=== PATIENT | male | born 1950 | race Caucasian/White ===

== ENCOUNTER 2018-10-07 05:56 | Inpatient (IN) | payer OTHER, MEDICARE ==
--- NOTE | 2018-10-06 11:50 | GHP ---
[f rep st] PREOP HISTORY AND PHYSICAL DATE OF ADMISSION: 10/07/2018 HISTORY: John is a 68-year-old male who presents with left shoulder pain, loss of motion and stif fness, loss of function. He has severe left shoulder glenohumeral [id number]-[id number] osteoarthritis. He h as tried activity modification. He has maintained his arm strength, and has continued to try to exer cise, he has used appropriate medications. He continues to have significant shoulder discomfort and loss of function, including activities of daily living. He has had an MRI that shows rotator cuff te ndinosis, but no tear of the rotator cuff, he has severe mtuv-vy-wrir glenohumeral osteoarthritis wit h inferior bone spurring, aqhm-xe-ojmp contact, subacromial sclerosis, and cyst formation. A left to elie shoulder arthroplasty is planned. PAST MEDICAL HISTORY: No current medical problems. PAST SURGICAL HISTORY: Include a procedure for testicle at age 12. He has had a vasectomy. ALLERGIES: He has no known drug allergies. MEDICATIONS: He uses Flonase, an antacid and supplement. SOCIAL HISTORY: He is a nonsmoker. REVIEW OF SYSTEMS: Negative for cardiopulmonary disease. PHYSICAL EXAM: GENERAL: John is a well-developed, well-nourished male in no apparent distress. HEAD AND NECK: Normocephalic, atraumatic. CHEST: Clear. CARDIOVASCULAR: Regular rate and rhythm. ABDOMEN: Soft. NEUROLOGIC: He is alert and oriented x3. EXTREMITIES: Examination of the left s zurdo shows 120 degrees of forward flexion. He has limitations of internal and external rotation. Mild impingement findings, though he has maintained good rotator cuff strength on initiation of abdu ction, external rotation, as well as supraspinatus testing. He is not tender over the AC joint. No biceps deformity. IMPRESSION: Left shoulder glenohumeral severe osteoarthritis. PLAN: Left total shoulder arthroplasty. Benefits and risks of surgery have been reviewed with Julio Cesar prakash. He understands that the risks include infection, damage to blood vessel or nerve, failure or loo sening of components and need for revision, shoulder dislocation or possible limitations of motion. He has signed his consent form and he wishes to proceed. /[id number]/MODL
[2018-10-07] MEDS ORDERED: ROPIVACAINE 0.2% 80 MG, EPINEPHrine 0.2 MG, KETOROLAC TROMETHAMINE 30 MG in SYRINGE 0 ML IU ONE (06:00)
[2018-10-07] MEDS ORDERED: TRANEXAMIC ACID 1,000 MG in NS 100 ML IV ONE (06:00)
[2018-10-07] MEDS ORDERED: PREGABALIN 150 MG CAP PO ONE (06:14)
[2018-10-07] MEDS ORDERED: LIDOCAINE 1% 2 ML INJ ID PRN (06:14)
[2018-10-07] MEDS ORDERED: LR 1,000 ML IV SCH ×2 (06:14→11:00)
[2018-10-07] MEDS ORDERED: ceFAZolin 2 GM/DEXTROSE 100 ML IV ONE (06:14)
[2018-10-07] MEDS ORDERED: ACETAMINOPHEN 500 MG TAB PO ONE (06:14)
[2018-10-07] MEDS ORDERED: LR 1,000 ML IV ONE (06:14)
[2018-10-07] MEDS ORDERED: BUPIVACAINE/EPI 0.5% 30 ML SDV ONE (06:17)
[2018-10-07] MEDS ORDERED: POLYMYXIN B SULFATE 500,000 UNIT/10 ML SYR IRR ONE (06:18)
[2018-10-07] MEDS ORDERED: BACITRACIN 50,000 UNITS/10 ML SYR IRR ONE (06:18)
[2018-10-07] MEDS ORDERED: MIDAZOLAM 2 MG/2 ML VIAL IVP ONE (07:03)
--- NOTE | 2018-10-07 07:03 | PDANEPAE ---
ANE History of Present Illness 68 yo for tsa ANE Past Medical History - Cardiovascular History Hx Hypertension: No Hx Arrhythmias: No Hx Chest Pain: No Hx Coronary Artery / Peripheral Vascular Disease: No Hx CHF / Valvular Disease: No Hx Palpitations: No - Pulmonary History Hx COPD: No Hx Asthma/Reactive Airway Disease: No Hx Recent Upper Respiratory Infection: No Hx Oxygen in Use at Home: No Hx Sleep Apnea: No Sleep Apnea Screening Result - Last Documented: Negative - Neurologic History Hx Cerebrovascular Accident: No Hx Seizures: No Hx Dementia: No - Endocrine History Hx Diabetes: No - Renal History Hx Renal Disorders: No - Liver History Hx Hepatic Disorders: No - Neurological & Psychiatric Hx Hx Neurological and Psychiatric Disorders: No - Cancer History Hx Cancer: No - Congenital Disorder History Hx Congenital Disorders: No - GI History Hx Gastrointestinal Disorders: Yes Gastrointestinal History Comment: REFLUX - Other Health History Other Health History: LT SHLDR LIMITED ROM. DEVIATED SEPTUM - Chronic Pain History Chronic Pain: Yes (LT SHLDR) - Surgical History Prior Surgeries: RT UNDESCENDED TESTICLE. VASECTOMY REVERSAL ANE Review of Systems Review of Systems: - Exercise capacity METS (RN): 5 METS ANE Patient History - Allergies Allergies/Adverse Reactions: No Known Allergies Allergy (Unverified 09/20/18 20:46) - Home Medications Home Medications: Fluticasone Nasal [Flonase Nasal Vinson (RX)] 1 sprays NASAL DAILY PRN MDD ALLERGY 09/20/18 [Last Taken 10/07/18 04:15] Herbals/Supplements -Info Only 1 ea PO DAILY 09/20/18 [Last Taken 1 Week Ago ~] Ibuprofen [Motrin (*)] 200 mg PO DAILY PRN 09/20/18 [Last Taken 1 Week Ago ~] Ranitidine HCl 150 mg PO BID 09/20/18 [Last Taken 10/07/18 04:15] SYSTANE 0.3-0.4% EYE DROPS DAILY 09/27/18 [Last Taken 10/07/18 04:15] - NPO status NPO Since - Liquids (Date): 10/07/18 NPO Since - Liquids (Time): 04:15 NPO Since - Solids (Date): 10/06/18 NPO Since - Solids (Time): 18:00 - Smoking Hx Smoking Status: Never smoked ANE Labs/Vital Signs - Vital Signs Blood Pressure: 112/77 Heart Rate: 62 Respiratory Rate: 14 O2 Sat (%): 96 Height: 5 ft 10 in Weight: 73.482 kg ANE Physical Exam - Airway Neck exam: FROM Mallampati Score: Class 2 Mouth exam: normal dental/mouth exam - Pulmonary Pulmonary: no respiratory distress - Cardiovascular Cardiovascular: regular rate and rhythym - ASA Status ASA Status: II ANE Anesthesia Plan Anesthesia Plan: general endotracheal anesthesia Regional Anesthesia: single shot NB
[2018-10-07] MEDS ORDERED: fentaNYL 250 MCG/5 ML INJ ONE (07:14)
[2018-10-07] MEDS ORDERED: PROPOFOL/EMULSION 500 MG/50 ML BOTTLE IV ONE ×2 (07:14→09:12)
[2018-10-07] MEDS ORDERED: ROCURONIUM 100 MG/10 ML VIAL ONE (07:16)
--- NOTE | 2018-10-07 07:18 | PDHPUP ---
History & Physical Update H&P update statement: This history and physical update is based on an assessment of the patient which was completed after admission or registration (within 24 hours), but prior to the surgery/procedure. H&P update: no change in patient's condition since H&P completed
[2018-10-07] MEDS ORDERED: DEXAMETHASONE 4 MG/ML VIAL ONE (09:12)
[2018-10-07] MEDS ORDERED: ONDANSETRON 4 MG/2 ML VIAL ONE (09:13)
[2018-10-07] MEDS ORDERED: KETOROLAC 30 MG/1 ML SDV ONE (09:13)
[2018-10-07] MEDS ORDERED: SUGAMMADEX SODIUM 200 MG/2 ML VIAL IVP ONE (10:08)
[2018-10-07] MEDS ORDERED: fentaNYL 100 MCG/2 ML INJ IVP PRN (10:26)
[2018-10-07] MEDS ORDERED: HYDROmorphONE/DILAUDID 2 MG/ML INJ IVP PRN (10:26)
[2018-10-07] MEDS ORDERED: NALOXONE HCL 0.4 MG/ML INJ IVP PRN (10:26)
[2018-10-07] MEDS ORDERED: ONDANSETRON 4 MG/2 ML VIAL IVP PRN ×2 (10:26→10:55)
[2018-10-07] MEDS ORDERED: HYDROCODONE/APAP 5/325 TAB PO PRN (10:55)
[2018-10-07] MEDS ORDERED: ACETAMINOPHEN 325 MG TAB PO PRN (10:55)
[2018-10-07] MEDS ORDERED: TEMAZEPAM 15 MG CAP PO PRN (10:55)
[2018-10-07] MEDS ORDERED: PROPYLENE GLYCOL OP PRN (11:07)
[2018-10-07] MEDS ORDERED: PEG OP PRN (11:07)
--- NOTE | 2018-10-07 11:12 | PDMN ---
Medical Necessity Medical necessity: [facility] [place] S364 Shoulder Arthroplasty, 1 day, 68 yo s/p L shoulder arthroplasty, IP only
--- NOTE | 2018-10-07 11:47 | GOP ---
[f rep st] OPERATIVE REPORT DATE OF OPERATION: 10/07/2018 SURGEON: Keyur Davis MD SHOE CUTTER: Wes Boyer, [facility], LSA. ANESTHESIOLOGIST: Jose Gutierrez MD. PREOPERATIVE DIAGNOSIS: Left shoulder glenohumeral osteoarthritis. POSTOPERATIVE DIAGNOSIS: Left shoulder glenohumeral osteoarthritis. PROCEDURE PERFORMED: Left total shoulder arthroplasty. FINDINGS: SPECIMENS: Include excised bone. ESTIMATED BLOOD LOSS: About 50 cc. INDICATIONS: The patient is a 68-year-old male who has had progressive pain, limited motion and shou lder dysfunction due to severe left glenohumeral osteoarthritis that is wobp-yf-grgo with lipping ost eophytes. He has some rotator cuff tendinosis by MRI, but no tear. He has tried appropriate conserv ative measures. A left total shoulder arthroplasty is planned. DESCRIPTION OF PROCEDURE: The patient was taken to the operating room, and Dr. Gutierrez provided a s calene block under ultrasound guidance. He was then placed under general anesthetic with endotrachea l intubation. Received preoperative antibiotics and tranexamic acid. He was placed in a semi-beach chair position with a Rodgers head track coach with his body moved to the left side of the table so I cou ld extend his shoulder. The left shoulder was carefully prepped and draped with chlorhexidine in the usual fashion. I made a deltopectoral approach, my incision extended from the coracoid process to a point in the upper mid anterior arm. Dissection was carried down through subcutaneous tissue. The cephalic vein was identified and moved laterally with the deltoid muscle. Blunt dissection was francie ed down onto the joint capsule and the humeral head. A deltoid retractor was placed. I identified t he distal portion of the biceps tendon just above the pectoralis tendon, opened the sheath and I teno desed the biceps tendon with 2 ktblhq-[id number] sutures of #2 FiberWire and released the tendon above it. Later, the tendon was removed completely from the joint. I opened the capsule vertically full-t hickness through subscapularis and capsule and carried the incision through the interval. This was a very thickened capsule and I debrided the interior surface which was thickened and fibrous to make m obile muscle tendon unit out of the subscapularis. The subscapularis was tagged with 2 FiberWire sut ures. I palpated the course of the axillary nerve. I released the inferior capsule. This allowed eleuterio to bring the humeral head up into the wound to make a neck cut. I used a neck cutting guide. Lynsey use the glenoid was in a fair bit of retroversion, my goal was to lessen the retroversion of the [facility] head. I made a head neck cut in about 20 degrees of retroversion and removed inferior osteophyte s. By extending the arm, I was able to open the canal with an awl and I progressively reamed the hum erus up to 14. This was a fairly tight fit, so I stepped down to a 12. The broach was left in place to protect the humerus. I placed anterior and posterior glenoid rim retractors. By studying preope rative x-rays and doing preoperative planning including observation of the cross-sectional cuts of e MRI, I designed my preparation of the glenoid accordingly. I felt it was quite retroverted and mos t of the posterior aspect of the glenoid was an osteophyte, so I design my pin placement centrally an d I decreased the retroversion somewhat and reamed a little bit countersinking in the anterior part a nd flush posteriorly to get a better positioning of the glenoid component and to contain my pegs in b one. I sized the glenoid to a 48 and I drilled the central PEG hole and the peripheral PEG holes. T he trial was a good fit. I placed a small amount of cement in the 3 peripheral PEG holes and the Marilyn bal shoulder anchor PEG glenoid crosslink polyethylene was tapped into place. I debrided the anterio r rim of the glenoid where I had countersunk the component a little bit. I then returned to the [facility] and I placed 4 drill holes with #2 FiberWire in the anterior rim. I press-fit a Global Advantage Porocoat standard stem size 12 in the appropriate anteversion. I did trial reductions. I found antonio t a size 52 head eccentric placing the bulk of the head superiorly, 21 mm thickness was appropriate, the permanent component was then placed over the Dalton taper fit. The shoulder was reduced. He had good stability and I was able to easily repair the subscapularis over the head. I used copious antib iotic irrigation. I mattressed each of the transosseous sutures that I had previously placed through the subscapularis and they were tied with multiple knots, and I completed the cuff repair up into th e interval with [id number]-kh-ekwqw sutures of #2 FiberWire. Irrigation was used. A joint cocktail was infiltrated. The cephalic vein was tied off as it did have a number of bleeding points, so I felt it was best to provide hemostasis to tie it off. I closed the wound in layers including 0 Vicryl in th e fascia, subcutaneous tissue with a 2-0 Monocryl, and the skin with a running subcuticular Quill Str ataFix suture. This was glued, Telfa and Tegaderm. The patient was placed in a sling. There were n o complications. DRAINS: No drains. COUNTS: All counts were correct and the patient was taken in stable condition to recovery. My surgical services manager was a medical necessity to perform this total shoulder arthroplasty. SUMMARY OF COMPONENTS: [employer] Global Advantage shoulder. The stem is a Global Advantage Porocoat siz e 12 standard. The glenoid is a Global Pegram PEG glenoid Premieron crosslink polyethylene size 48. The head is a Global Advantage eccentric head, 52 x 21 with most of the head directed superiorly. /[id number]/MODL
--- NOTE | 2018-10-07 13:07 | POSTANESTH ---
Post Anesthetic Evaluation Cardiovascular Status: Normal, Stable Respiratory Status: Normal, Stable Level of Consciousness/Mental Status: Can Participate in Eval Pain Control: Adequate, Prn Tx Ordered Nausea/Vomiting Control: Adequate, Prn Tx Ordered Complications Possibly Related to Anesthesia: None Noted
[2018-10-07] MEDS: KETOROLAC 30 MG/1 ML SDV IVP SCH ×3 (13:48→23:32)
[2018-10-07] MEDS: ceFAZolin 2 GM/DEXTROSE 100 ML IV SCH ×2 (15:22→23:32)
[2018-10-07] MEDS: FAMOTIDINE 20 MG TAB PO SCH (20:59)
[2018-10-08] MEDS: KETOROLAC 30 MG/1 ML SDV IVP SCH (05:49)
[2018-10-08] MEDS: FAMOTIDINE 20 MG TAB PO SCH (05:53)
[2018-10-08 07:34] VITALS: BP 109/72
--- NOTE | 2018-10-08 08:00 | SOAPPROG ---
SOAP Progress Note Assessment/Plan: Assessment: 10/08/18, POD#1 L TSA, pain controlled, dressing dry Plan: 10/08/18 07:58 PT and home, has outpatient PT set up, raghav Larry, celsymone, reviewed exercises Objective: Vital Signs Temp Pulse Resp BP Pulse Ox 36.8 C 55 L 18 109/72 97 10/08/18 07:34 10/08/18 07:34 10/08/18 07:34 10/08/18 07:34 10/08/18 07:34 10/07/18 10/08/18 10/09/18 05:59 05:59 05:59 Intake Total 1400 Output Total 1500 400 Balance -100 -400 ICD10 Worksheet Patient Problems: Problems Problem Status Onset Primary osteoarthritis, left shoulder Acute - ICD10 Problem Qualifiers (1) Primary osteoarthritis, left shoulder
--- NOTE | 2018-10-08 10:14 | ASMTLACE ---
LACE Length of stay for Answers: 2 days current admission Acuity / Level of Answers: Yes Care: Did the patient have an inpatient admission? Comorbidities - select Answers: Opioid dependence all that apply / Chronic pain # of Emergency department Answers: 0 visits in the last 6 months Score: 9 Date Signed: 10/08/2018 10:14 AM Electronically Signed By:NIVIA Zimmerman
--- NOTE | 2018-10-08 13:52 | ASMTCMCOM ---
CM Note CM Note Notes: Pt medically stable for d/c, rec outpatient PT. No CM d/c needs identified. Date Signed: 10/08/2018 01:51 PM Electronically Signed By:NIVIA Zimmerman
== END 2018-10-08 11:27 | disposition home or self-care (01) | DRG 483 ==
LOC: F3N 05:56
PROVIDERS: ADMIT Orthopaedic Surgery; ATTEND Orthopaedic Surgery
PROC: 0RRK0JZ Replacement of Left Shoulder Joint with Synthetic Substitute, Open Approach (ICD-10-PCS; principal; 2018-10-07 07:15)
DX: M19.012 Primary osteoarthritis, left shoulder (principal)
CPT/HCPCS: 97110-GP; 97116-GP; 97161-GP; 97165-GO; 97535-GO; C1713; J0171; J0690; J1100; J1885; J2250; J2405; J2704; J2795; J3010